=== PATIENT | female | born 1950 | race Caucasian/White ===

== ENCOUNTER 2018-04-01 10:06 | Emergency (ER) | payer OTHER, MEDICARE ==
--- NOTE | 2018-04-01 10:17 | EDPHY ---
H & P Time Seen by Provider: 04/01/18 10:17 - Social History Smoking Status: Never smoked Constitutional: Initial Vital Signs Temperature (C) 36.7 C 04/01/18 10:15 Heart Rate 63 04/01/18 10:15 Respiratory Rate 18 04/01/18 10:15 Blood Pressure 195/80 H 04/01/18 10:15 O2 Sat (%) 94 04/01/18 10:15 O2 Delivery Mode Room Air Allergies/Adverse Reactions: No Known Allergies Allergy (Verified 04/01/18 10:15) Home Medications: Medication Instructions Recorded Lisinopril 04/01/18 Medical Decision Making - Diagnostics Imaging Results: Imaging Impressions Chest X-Ray 04/01/18 10:32 Impression: 1. Mild airways disease similar to weeks prior. 2. No acute process. Imaging: Discussed imaging studies w/ chief executive Radiologist, I viewed and interpreted images myself ED Course/Re-evaluation: CHIEF COMPLAINT: "I don't feel good," dyspnea HISTORY OF PRESENT ILLNESS: The patient is a 67 y/o female with a history of ASD repaired via open heart surgery in 1957, abnormal stress test in 2014, and coronary catheterization in 2014 that showed clean coronaries and possible left ventricular hypertrophy who arrives today complaining shortness of breath, malaise, and fatigue over the last few weeks to months. She describes a cough when lying down for a couple years, feeling "foggier" than normal, general fatigue, and getting winded with activities like walking across the parking lot. She saw her PCP last week for these complaints and was told a chest x-ray showed "water on my lungs" so she was referred to the ED. She denies fever, chills, abdominal pain, vomiting, diarrhea, sore throat, ear ache, congestion, recent trauma, or recent illness. REVIEW OF SYSTEMS: A comprehensive 10 system review of systems is otherwise negative aside from elements mentioned in the history of present illness and medical decision making. PHYSICAL EXAM: HR, BP, O2 Sat, RR. Temp noted General Appearance: Alert, well hydrated, appropriate, and non-toxic appearing. Head: Atraumatic without scalp tenderness or obvious injury Eyes: Pupils equal, round, reactive to light and accommodation, EOMI, no trauma , no injection. Nose: Atraumatic, no rhinorrhea, clear. Throat: Mucus membranes moist. Neck: Supple, nontender, no lymphadenopathy. Respiratory: No retractions, no distress, no wheezes, and no accessory muscle use. Lungs are clear to auscultation bilaterally. Cardiovascular: Regular rate and rhythm, no murmurs, rubs, or gallops. Good capillary refill all extremities. Gastrointestinal: Abdomen is soft, nontender, non-distended, no masses, no rebound, no guarding, no peritoneal signs. Musculoskeletal: Normal active ROM of all extremities, atraumatic. Neurological: Alert, appropriate, and interactive. The patient has non-focal cranial nerves, motor, sensory, and cerebellar exam. Skin: No rashes, good turgor, no nodules on palpation. Past medical history: Congenital ASD, hypertension, hyperlipidemia Past surgical history: ASD repaired via open heart surgery 1956 Family history: Father with [place] age 50 Social history: . Lives in [place]. PCP: Dr. Aguayo DIAGNOSTICS/PROCEDURES/CRITICAL CARE TIME: The 12 lead EKG was interpreted by myself. Sinus mechanism. See hard copy and/ or "tracemaster" electronic copy for interpretation. Outpatient chest x-ray from 03/22/18 reviewed. Nothing acute identified. Chest x-ray today: nothing acute DIFFERENTIAL DIAGNOSIS: The differential diagnosis for the patient's shortness of breath and hypoxemia included but was not limited to pneumonia, myocardial infarction, acute mountain sickness, high altitude pulmonary edema, congestive heart failure, and pulmonary embolus. MEDICAL DECISION MAKING: This is a well-appearing 67 y/o female who presents with several waxing and waning complaints over the last weeks to years including dyspnea with exertion and general malaise. Her exam is unremarkable. Doubt ACS, particularly in setting of recent clean catheterization. Plan for IV, labs, EKG, and chest x- ray. Review of out patient chest x-ray from last week does not appear to show anything acute. Will repeat a chest x-ray here. Chest x-ray here is nonacute, labs are normal including troponin, d-dimer, flu swab. Reassessed patient and discussed findings. I've found no concerning causes for her symptoms here today. Plan for discharge home in good condition with referral to pulmonology for follow up on any continuing dyspnea. Return precautions discussed. She is comfortable with this plan. - Data Points Laboratory Results: Laboratory Results 04/01/18 10:41 04/01/18 10:41 04/01/18 04/01/18 04/01/18 10:41 10:41 10:41 WBC RBC Hgb Hct MCV MCH MCHC RDW Plt Count MPV Neut % (Auto) Lymph % (Auto) Bates % (Auto) Eos % (Auto) Baso % (Auto) Nucleat RBC Rel Count Absolute Neuts (auto) Absolute Lymphs (auto) Absolute Monos (auto) Absolute Eos (auto) Absolute Basos (auto) Absolute Nucleated RBC Immature Gran % Immature Gran # D-Dimer 0.31 ug/mLFEU ug/mLFEU (0.00-0.50) Sodium 141 mEq/L mEq/L (135-145) Potassium 4.2 mEq/L mEq/L (3.3-5.0) Chloride 102 mEq/L mEq/L (97-110) Carbon Dioxide 28 mEq/l mEq/l (22-31) Anion Gap 11 mEq/L mEq/L (6-14) BUN 18 mg/dL mg/dL (7-23) Creatinine 0.6 mg/dL mg/dL (0.6-1.0) Estimated GFR > 60 Glucose 100 mg/dL mg/dL (70-100) Calcium 10.3 mg/dL mg/dL (8.5-10.4) POC Troponin I NT-Pro-B Natriuret Pep 98 pg/mL pg/mL (0-125) Nasal Influenza A PCR NEGATIVE FOR FLU A (NEGATIVE) Nasal Influenza B PCR NEGATIVE FOR FLU B (NEGATIVE) 04/01/18 04/01/18 10:41 10:36 WBC 6.95 10^3/uL 10^3/uL (3.80-9.50) RBC 4.63 10^6/uL 10^6/uL (4.18-5.33) Hgb 13.9 g/dL g/dL (12.6-16.3) Hct 42.3 % % (38.0-47.0) MCV 91.4 fL fL (81.5-99.8) MCH 30.0 pg pg (27.9-34.1) MCHC 32.9 g/dL g/dL (32.4-36.7) RDW 13.6 % % (11.5-15.2) Plt Count 292 10^3/uL 10^3/uL (150-400) MPV 9.8 fL fL (8.7-11.7) Neut % (Auto) 54.5 % % (39.3-74.2) Lymph % (Auto) 36.0 % % (15.0-45.0) Bates % (Auto) 7.6 % % (4.5-13.0) Eos % (Auto) 1.4 % % (0.6-7.6) Baso % (Auto) 0.4 % % (0.3-1.7) Nucleat RBC Rel Count 0.0 % % (0.0-0.2) Absolute Neuts (auto) 3.78 10^3/uL 10^3/uL (1.70-6.50) Absolute Lymphs (auto) 2.50 10^3/uL 10^3/uL (1.00-3.00) Absolute Monos (auto) 0.53 10^3/uL 10^3/uL (0.30-0.80) Absolute Eos (auto) 0.10 10^3/uL 10^3/uL (0.03-0.40) Absolute Basos (auto) 0.03 10^3/uL 10^3/uL (0.02-0.10) Absolute Nucleated RBC 0.00 10^3/uL 10^3/uL (0-0.01) Immature Gran % 0.1 % % (0.0-1.1) Immature Gran # 0.01 10^3/uL 10^3/uL (0.00-0.10) D-Dimer Sodium Potassium Chloride Carbon Dioxide Anion Gap BUN Creatinine Estimated GFR Glucose Calcium POC Troponin I 0.01 ng/mL ng/mL (0.00-0.08) NT-Pro-B Natriuret Pep Nasal Influenza A PCR Nasal Influenza B PCR Medications Given: Discontinued Medications Sodium Chloride (Ns) 500 mls @ 0 mls/hr IV EDNOW ONE; Wide Open PRN Reason: Protocol Stop: 04/01/18 10:27 Last Admin: 04/01/18 10:33 Dose: 500 mls Point of Care Test Results: Chemistry 04/01/18 10:36 POC Troponin I 0.01 ng/mL ng/mL (0.00-0.08) Departure - Departure Disposition: Home, Routine, Self-Care Clinical Impression: Fatigue Qualifiers: Fatigue type: other Qualified Code(s): R53.83 - Other fatigue Dyspnea Qualifiers: Dyspnea type: other forms of dyspnea Qualified Code(s): R06.09 - Other forms of dyspnea Condition: Good Instructions: Dyspnea (ED), Fatigue (ED) Additional Instructions: Please follow up with sales technician this week for unimproved symptoms. Return to the ED for chest pain, shortness of breath, or other worsening of condition. Referrals: TRISTIAN AGUAYO [Primary Care Provider] - As per Instructions Manish Mason MD [Medical Doctor] - As per Instructions Report Scribed for: Hong Bennett Report Scribed by: Mary Pearson Date of Report: 04/01/18 Time of Report: 10:39
[2018-04-01] MEDS ORDERED: NS 500 ML IV ONE (10:26)
[2018-04-01 10:44] LABS: PLATELET COUNT 292 10^3/uL (150-400)
[2018-04-01 11:54] VITALS: BP 177/87
--- NOTE | 2018-04-02 13:10 | CPEKG ---
Test Reason : OPEN Blood Pressure : / mmHG Vent. Rate : 060 BPM Atrial Rate : 060 BPM P-R Int : 174 ms QRS Dur : 103 ms QT Int : 439 ms P-R-T Axes : 048 059 115 degrees QTc Int : 439 ms Sinus rhythm Abnormal T, consider ischemia, lateral leads Confirmed by Hong Bennett ([id number] on 04/02/2018 1:09:18 PM Referred By: Confirmed By:Hong Bennett
== END 2018-04-01 11:54 | disposition home or self-care (01) ==
DX: R06.09 Other forms of dyspnea (principal); R53.83 Other fatigue; E86.9 Volume depletion, unspecified; Z82.49 Family history of ischemic heart disease and other diseases of the circulatory system
CPT/HCPCS: 84484-PO